=== PATIENT | male | born 1960 | race Two or more races ===

== ENCOUNTER 2024-04-22 11:10 | Emergency (ER) | payer OTHER, MEDICAID, SELFPAY ==
[2024-04-22 11:11] VITALS: BMI 25.8
[2024-04-22 11:35] VITALS: BP 158/97; PULSE 74; RESP 19; TEMP 36.9; O2SAT 96
--- NOTE | 2024-04-22 11:38 | XR_ITS ---
Examination: CT brain head without contrast. 2-D sagittal coronal reconstructions Date and time of exam:April 22, 2024 at 1158 hours INDICATIONS: A rock fell on the patient's head this morning with laceration to the back of the head, head pain neck pain CTDI: vol (mGy):46.8 DLP: (mGycm):497 Technique: Multiple CT axial sections of the brain have been obtained, 5 mm slice thickness. Contrast has not been administered. 2-D sagittal, coronal reconstructions have been obtained Low dose protocols were performed. One or more of the following dose reduction techniques were used; automated exposure control, adjustment of the mA and/or KV according to patient size, use of iterative reconstruction technique. Findings: No significant ventricular enlargement. Intra-axial or extra-axial hemorrhage density is not seen. No mass effect or midline shift Basal cisterns are not remarkable. Fourth ventricle is midline. Cranial vault intact. Impression: Negative for acute hemorrhage, mass effect or midline shift
[2024-04-22] MEDS: DIPHTH,PERTUSS(ACELL),TET VAC 0.5 ML VIAL IMi (13:27)
--- NOTE | 2024-04-22 13:27 | EDNOTE_ITS ---
ED Wound/Laceration-RME/HPI General Chief Complaint: Wound/Laceration Stated Complaint: LAC/BACK OF HEAD Time Seen by Provider: 04/22/24 11:23 Arrival date/time: 04/22/24 11:10 64-year-old male presents to the emergency department complaints of laceration to his scalp after a drill fell on his head. Patient does report headache Limitations: no limitations Related Data Home Medications ?Medication ?Instructions ?Recorded ?Confirmed GLUCOSAMINE SULFATE 2KCL 1 tab PO QDAY ##0 08/24/15 (GLUCOSAMINE) omeprazole 20 mg capsule,delayed 20 mg PO QDAY ##0 08/24/15 release Previous Rx's ?Medication ?Instructions ?Recorded ibuprofen 600 mg tablet 600 mg PO Q6H #30 tabs 11/24/23 Allergies Allergy/AdvReac Type Severity Reaction Status Date / Time No Known Allergies Allergy Verified 04/22/24 11:13 Review of Systems Review of Systems Systems Reviewed: All systems reviewed, normal except as documented Constitutional Constitutional: Reports system reviewed and no additional complaints, except as documented, Denies fever(s) and Denies headache(s) Eyes Eyes: Reports system reviewed and no additional complaints, except as documented and Denies blurry vision ENT Ears, Nose, Mouth, and Throat: Reports system reviewed and no additional complaints, except as documented, Denies headache(s), Denies nasal congestion and Denies nasal discharge Cardiovascular Cardiovascular: Reports system reviewed and no additional complaints, except as documented, Denies chest pain and Denies dyspnea Respiratory Respiratory: Reports system reviewed and no additional complaints, except as documented, Denies chest congestion, Denies cough and Denies dyspnea Gastrointestinal Gastrointestinal: Reports system reviewed and no additional complaints, except as documented and Denies abdominal pain Integumentary/Breasts Skin/Breast: Reports system reviewed and no additional complaints, except as documented, Denies rash and Reports wounds (Laceration scalp) Neurologic Neurologic: Reports system reviewed and no additional complaints, except as documented, Reports as per HPI and Denies headache(s) Past Medical History Social History SMOKING STATUS: Never smoker ED Exam General Limitations: Present no limitations General appearance: Present alert and in no apparent distress Expanded Head Exam Head image: 2 1. Laceration scalp 3 cm Eye Eye exam: Present normal appearance, PERRL and EOMI; Absent conjunctival injection ENT ENT exam: Present normal exam, normal oropharynx and mucous membranes moist Neck Neck exam: Present normal inspection, full ROM and trachea midline Chest Chest inspection: Present normal inspection and symmetric chest wall rise Respiratory Respiratory exam: Present normal lung sounds bilaterally; Absent respiratory distress, wheezes, stridor or accessory muscle use Cardiovascular Cardiovascular exam: Present regular rate, normal rhythm and normal heart sounds Abdominal Exam Abdominal exam: Present soft and normal bowel sounds; Absent distention, tenderness, guarding, rebound or rigidity Extremities Exam Extremities exam: Present normal inspection and full ROM Back Exam Back exam: Present normal inspection and full ROM Neurological Exam Neurological exam: Present alert, oriented X3, CN II-XII intact, normal gait and reflexes normal; Absent motor sensory deficit Psychiatric Psychiatric exam: Present normal affect and normal mood Skin Skin exam: Present warm, dry and other (Laceration) Course Quality Measures none Orders Category Date Time Status Stapler to Beside ONCE Care 04/22/24 11:38 Completed Wound Care NOW Care 04/22/24 11:[address] head/brain wo con Stat Exams 04/22/24 11:38 Completed Lidocaine 1% 20 ml [Xylocaine 1% 20 ML] Med 04/22/24 11:38 Discontinued 20 ml INFL X1 ONE Tet,Diphth,Pertuss(Acell)-Tdap [Boostrix Vacc] Med 04/22/24 11:38 Discontinued 0.5 ml IMI .ONCE ONE Vital Signs Vital signs: Vital Signs Temperature 98.5 F 04/22/24 11:35 Pulse Rate 74 04/22/24 11:35 Respiratory Rate 19 04/22/24 11:35 Blood Pressure 158/97 H 04/22/24 11:35 Pulse Oximetry (%) 96 04/22/24 11:35 Oxygen Delivery Method Room Air 04/22/24 11:35 O2 saturation 96% room air within normal limits Procedures -ED Laceration Laceration 1: Site: scalp Size (cm): 3 Description: linear Depth: simple, single layer Local Anesthetic: lidocaine 1% Amount of anesthesia used (mL): 5 Pre-repair: wound explored and irrigated extensively Skin layer closed with: other (Staple x 4) Wound / Laceration MDM Narrative MDM Narrative:: 64-year-old male presents to the emergency department complaints of laceration to his scalp after a drill fell on his head. Patient does report headache On exam patient is laceration to the scalp wound irrigated copiously laceration repaired with [address] scan of the head obtained no acute emergent findings noted Tetanus updated Patient discharged home in no distress to follow-up with primary care doctor in the next 24 to 48 hours and for any worsening symptoms to return to the ER immediately Patient data External records reviewed:: [facility] previous records Clinical information provided by:: patient Social determinants that could affect healthcare access:: none Patient has the following chronic illnesses:: None How is presenting disease/condition affected by chronic disease/condition?: no chronic disease Evaluation data The following diagnostics were reviewed and interpreted by me:: radiology exam(s) Lab and/or radiology exams considered but not ordered:: Radiology obtain Interpretation Summary: Reviewed by me Medications / Prescriptions Medications or Prescriptions considered but not ordered:: Given Medication administrations:: Medication Administration History Discontinued Medications Diphtheria/Tetanus/Acell Pertussis (Diphth,Pertuss(Acell),Tet Vac 0.5 Ml Vial) 0.5 ml IMi .ONCE ONE Stop: 04/22/24 11:39 Last Admin: 04/22/24 13:27 Dose: 0.5 ml Documented By: BRIDGETTE Lidocaine HCl (Lidocaine Hcl 1% 20 Ml Vial) 20 ml INFL X1 ONE Stop: 04/22/24 11:39 Last Admin: 04/22/24 13:29 Dose: Not Given Documented By: BRIDGETTE Non-Admin Reason: Cancelled by Provider Given Consultations Consultation(s) initiated? (list below): No Diagnosis Wound Differential Diagnosis: laceration, abrasion and avulsion of skin Most likely diagnosis given after review of the tests above:: Laceration Admission Indicated Admission indicated?: not indicated Admission Request Was there a request for admission?: No Disposition Plan Disposition Plan: Discharge Discharge Attestation Discharge Attestation: The patient and all family members were given an opportunity to ask questions and understood the discharge instructions. Discharge instructions specifically effects, indications for sooner follow up or return to the emergency department, and the expected course of current diagnosis. Patient condition: Stable Discharge Plan Plan Patient Disposition: HOME (Self Care) Disposition Comment: Stable Prescriptions/Referrals Prescriptions/Med Rec: No Action omeprazole 20 MG capsule,delayed release(DR/EC) 20 mg PO QDAY Qty: 0 GLUCOSAMINE SULFATE 2KCL (GLUCOSAMINE) 1,000 MG tablet 1 tab PO QDAY Qty: 0 ibuprofen 600 mg tablet 600 mg PO Q6H Qty: 30 0RF Referrals: Tavon Corona MD [Primary Care Provider] - 04/23/24 Problem List Clinical Impression: Laceration of scalp Patient/Caregiver Discharge Instructions Education Materials: ED Head Injury (Adult) Additional Instructions: Please follow up with your primary care doctor in the next 24-48hrs for any worsening symptoms return here immediately Print Language: Setswana Stand Alone Forms: Debbie Award Info., Patient Portal Info Letter Vaccines Vaccines Given During Stay: TDaP PA/SUPERVISOR DOG LICENSE OFFICER Supervising Physician PA/SUPERVISOR DOG LICENSE OFFICER Supervising Physician: Dr. Batres
== END 2024-04-22 13:34 | disposition home or self-care (01) ==
PROVIDERS: Emergency Provider Emergency Medicine; PCP Family Medicine
DX: S01.01XA Laceration without foreign body of scalp, initial encounter (principal); W20.8XXA Other cause of strike by thrown, projected or falling object, initial encounter; Z23 Encounter for immunization
CPT/HCPCS: 12002; 70450; 90471; 90715; 99284